=== PATIENT | female | born 1935 | race Caucasian/White ===

== ENCOUNTER 2017-10-30 05:57 | Inpatient (IN) ==
--- NOTE | 2017-10-29 15:54 | Discharge Summary ---
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 - Discharge Medications Home Medications: Aspirin Enteric Coated [Aspirin EC] 325 mg PO DAILY 21 Days #21 tablet. [Rx] OxyCODONE Immed Rel [Roxicodone 5 MG] 5 mg PO Q6HR PRN 7 Days #28 tablet [Rx] HYDROcodone/Acet 5/325 mg [[place] 5-325 mg] 1 tab PO TID PRN 10/30/17 [History] Losartan/Hydrochlorothiazide [Hyzaar 100-12.5 Tablet] 1 tab PO QAM 10/30/17 [ History] Fine-3S/Dha/Epa/Fish Oil [Fish Oil 1,200 mg Softgel] 1 cap PO DAILY 10/30/17 [ History] Allergies/Adverse Reactions: 3 Allergy/AdvReac Type Severity Reaction Status Date / Time ciprofloxacin [From Cipro] Allergy Swelling Verified 10/30/17 11:39 of Lip/Tongue/Throat Penicillins Allergy Rash Verified 10/30/17 11:39 Sulfa (Sulfonamide Allergy Vomiting Verified 10/30/17 11:39 Antibiotics) Primary care physician: Stephon Pena CNP - Patient Status Disposition: Transfer Inpatient Rehab Fac Condition: Good - Discharge Instructions Follow Up With: Stephon Pena CNP [Primary Care Provider] - - Hospital Course Hospital course: Ms. 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 Ward is a 82 year old female Status post left total hip replacement The patient had an uneventful postoperative course. They received antibiotics and physical therapy and were discharged in stable condition. There will follow -up in the office in 2 weeks. - Time Spent with Patient Total time spent providing and/or coordinating discharge services:
--- NOTE | 2017-10-29 16:00 | Physician Discharge Referral ---
ExtendedCare Referral Info Transfer To: [facility] Provider in Charge: Dr. 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 Home Medications: Aspirin Enteric Coated [Aspirin EC] 325 mg PO DAILY 21 Days #21 tablet. [Rx] OxyCODONE Immed Rel [Roxicodone 5 MG] 5 mg PO Q6HR PRN 7 Days #28 tablet [Rx] Allergies/Adverse Reactions: 3 Allergy/AdvReac Type Severity Reaction Status Date / Time ciprofloxacin [From Cipro] Allergy Swelling Unverified 10/18/17 11:59 of Lip/Tongue/Throat Penicillins Allergy Rash Unverified 10/18/17 11:59 Sulfa (Sulfonamide Allergy Vomiting Unverified 10/18/17 11:59 Antibiotics) - Respiratory Orders Smoking Cessation: Smoking cessation has been advised. For more information, call the [place] Tobacco Quit Line at 7-553-MFRX-NOW. - Ancillary Orders May use pressure relief devices daily prn, May go on DALI w/family/respon constitution party w /meds at nurse discretion PRN, May consult with Dentist, Career Orientation Teacher, Central Control Room Operator PRN - Mobility Orders Chair, Ambulate - Rehabiliation Orders Rehab Potential: Good Rehab Orders: Evaluation for Physical Therapy, Evaluation for Occupational Therapy Other: Total Hip replacement Precautions Apply cold therapy 3-6x/day for 20 minutes at a time. Encourage ambulation throughout the day and incentive spirometer 10x/hour. Elevate affected extremity as tolerated. Brace: Wear hip abduction pillow when laying/sleeping - Treatments Skin tear care topically daily PRN per policy List/Other: Opsite placed. Keep dressing intact until first follow up appointment. If > 50% saturated, notify office, remove dressing and place appropriate dressing back in place. Leave Zipline intact. Opsite dressing is water resistant, not water- proof. OK to shower, but do not get dressing wet. - Diet Orders Regular CERTIFICATION: I certify that the transfer of the above named patient to an Extended Care Facility is necessary for the continuing treatment of the diagnosis listed. The above information is true and accurate reflection of patient's current condition. Confidential - Redisclosure prohibited without a patient's written consent.
--- NOTE | 2017-10-29 16:45 | Anesthesia Evaluation PreOp ---
Date of Encounter: 10/30/17 Time of Encounter: 07:01 - Past History Planned Operation: Left Robotic Total Hip Arthroplasty Cardiac History: HTN, Hyperlipidemia Pulmonary History: Denies Any Significant HX SOCIAL WORK LECTURER History: Denies Any Significant HX Other Medical History: Denies Any Significant HX Anesthesia History: No Prior Anesthetic Complications, Past Anesthesia ( hysterectomy) Alcohol Use: occasionally Drug use: none Medications and Allergies Aspirin Enteric Coated [Aspirin EC] 325 mg PO DAILY 21 Days #21 tablet. [Rx] OxyCODONE Immed Rel [Roxicodone 5 MG] 5 mg PO Q6HR PRN 7 Days #28 tablet [Rx] HYDROcodone/Acet 5/325 mg [[place] 5-325 mg] 1 tab PO TID PRN 10/30/17 [History] Losartan/Hydrochlorothiazide [Hyzaar 100-12.5 Tablet] 1 tab PO QAM 10/30/17 [ History] Blair-3S/Dha/Epa/Fish Oil [Fish Oil 1,200 mg Softgel] 1 cap PO DAILY 10/30/17 [ History] 3 Allergy/AdvReac Type Severity Reaction Status Date / Time ciprofloxacin [From Cipro] Allergy Swelling Unverified 10/18/17 11:59 of Lip/Tongue/Throat Penicillins Allergy Rash Unverified 10/18/17 11:59 Sulfa (Sulfonamide Allergy Vomiting Unverified 10/18/17 11:59 Antibiotics) - Meds/Allergy Pre-op Review Medications Reviewed: Yes Allergies Reviewed: Yes Beta Blockers on Current Med List: No Anesthesia Results - Labs Laboratory Tests 10/18/17 10/18/17 10/18/17 12:15 12:15 12:15 WBC 6.8 Hgb 14.3 Hct 43.9 Plt Count 271 PT 11.0 INR 1.0 APTT 35.0 Sodium 142 Potassium 4.2 BUN 16 Creatinine 0.54 L - Imaging EKG: report reviewed (10/18/2017 SINUS RHYTHM POSSIBLE LEFT ATRIAL ENLARGEMENT MODERATE ST DEPRESSION) Anesthesia Exam O2 Sat Height 1.6 m Height 1.6 m Height 1.6 m Weight 60.328 kg Weight 60.328 kg Weight 60.328 kg O2 Sat by Pulse Oximetry 97 Vital Signs Temp Pulse Resp BP Pulse Ox 98.0 F 71 18 155/72 97 10/30/17 06:41 10/30/17 06:41 10/30/17 06:41 10/30/17 06:41 10/30/17 06:41 Height: 5'3'' Weight: 133 lbs NPO (# of Hours): 8 Pain Scale: 3 (left hip) Pain Scale Used: Numeric (1 - 10) - HEENT Pupil (Motor): EOMI Mallampati: III Teeth: Normal Denture Type: Upper: Partial Oral Opening: Greater than 3 - SOCIAL WORK LECTURER LOC: Oriented SOCIAL WORK LECTURER Motor: Normal RUE, Normal LUE, Normal RLE, Normal LLE, Normal Face SOCIAL WORK LECTURER Sensory: Normal: RUE, LUE, RLE, LLE, Face - Cardiac Rhythm: Regular Murmur: None - Pulmonary Breath Sounds: bilateral Clear Respiratory Effort: Symmetrical Anesthesia Assess/Plan ASA Score: 2 Modified Madyson Scale for Level of Consciousness: Cooperative, oriented, and tranquil Anesthetic Plan: General Monitoring Plan: Standard Monitors Recovery Plan: PACU
[2017-10-30] MEDS ORDERED: Clindamycin 900 MG/50 ML 900 MG/50 ML IV.SOLN IVPB ONE (06:36)
[2017-10-30] MEDS ORDERED: Plasma-Lyte A (PH 7.4) 1,000 ML IVC SCH ×2 (06:45→08:15)
--- NOTE | 2017-10-30 06:56 | History & Physical Report ---
Date of Encounter: 10/30/17 Time of Encounter: 06:56 24 Hour HP Update - Instructions Instructions: If the History and Physical is less than 30 days old and was completed prior to A.M. admission and or procedure and has NOT been updated on calendar day of procedure please complete this update prior to performing procedure. - Update Patient reports changes in Medical Condition: No Changes in examination, assessment, or condition: No Changes in Medication: No Preop tests/diagnostics Reviewed: Yes Surgery Remains Indicated: Yes Consent for Planned Operative Procedure(s) Verified: Yes - Pre-Operative Checklist Preoperative Checklist Indicated: No Prophylactic Antibiotic Ordered: Yes Is VTE Prophylaxis Indicated?: Yes
[2017-10-30] MEDS ORDERED: *HR* Propofol 200 MG/20 ML VIAL IVP ONE (07:08)
[2017-10-30] MEDS ORDERED: *HR* FentaNYL (PF) 100 MCG/2 ML VIAL ONE ×2 (07:08→09:35)
[2017-10-30] MEDS ORDERED: *HR* Phenylephrine 10 MG/ML VIAL ONE (07:09)
[2017-10-30] MEDS ORDERED: *HR* Succinylcholine 200 MG/10 ML VIAL IVP ONE (07:09)
[2017-10-30] MEDS ORDERED: Ondansetron 4 MG/2 ML VIAL ONE (07:09)
[2017-10-30] MEDS ORDERED: Lidocaine -MPF 4% 5 ML AMPUL ONE (07:09)
[2017-10-30] MEDS ORDERED: *HR* Rocuronium Bromide 50 MG/5 ML VIAL ONE (07:09)
[2017-10-30] MEDS ORDERED: Dexamethasone 4 MG/ML VIAL ONE (07:09)
[2017-10-30] MEDS ORDERED: Lidocaine -MPF 2% 2 ML VIAL ONE (07:09)
[2017-10-30] MEDS ORDERED: Acetaminophen IV 1,000 MG/100 ML INFUS..BTL ONE (07:29)
[2017-10-30] MEDS ORDERED: ROPIVACAINE HCL/PF 0.5% 30 ML VIAL ONE (07:29)
[2017-10-30] MEDS ORDERED: Ethanol\\Acetic Acid\\Na Ace\\Ben 1,000 ML IRRIG.SOLN IR ONE (07:30)
--- NOTE | 2017-10-30 07:45 | Anesthesia Procedures ---
Date of Encounter: 10/30/17 Time of Encounter: 07:40 Procedures: Anesthesia - Nerve Block Procedure Date: 10/30/17 Time: 07:40 Allergies/Adv Reactions: cipro, pcn, sulfa Pre-op Diagnosis: left hip OA Surgical Procedure: left ARIELLE Checklist: Correct Patient Identifier, Correct procedure, History checked Correct side: Left Blood Thinner: No Monitor Applied: EKG, BP, Pulse Oximetry Supplemental Oxygen via Nasal Cannula (L/min): 2 Sedation: Fentanyl (mcg): 100 Indication: Post Op Analgesia Pre-op Neuro Deficits: No Block Type: Other (fascia iliaca) Catheter placed: No Sterile Technique: Yes Ultrasound used: Yes Anatomy identified: Yes Visual spread of Local: Yes Neuro Stimulation: No Blood on Needle Aspiration: No Smooth Injection of Local: Yes Pain with Injection of Local: No Prep: Chlorhexadine Needle: 22 x 50 mm Stimuplex Local: Ropivacaine (0.25%) Volume (cc): 60 Number of Attempts: 1 Complications: None/effective block Vitals: Vital Signs/O2 Sat/Glucose, Most Recent Temp Pulse Resp BP Pulse Ox 98.0 F 80 18 157/82 98 10/30/17 06:41 10/30/17 07:40 10/30/17 06:41 10/30/17 07:40 10/30/17 07:40
[2017-10-30] MEDS ORDERED: Albuterol 2.5 MG/3 ML NEBULIZER IH ONE (08:05)
[2017-10-30] MEDS ORDERED: Naloxone 0.4 MG/ML INJ IVP PRN ×2 (08:05→10:35)
[2017-10-30] MEDS ORDERED: Ondansetron 4 MG/2 ML VIAL IVP ONE (08:05)
[2017-10-30] MEDS ORDERED: *HR* Labetalol 20 MG/4 ML SYRINGE IVP PRN (08:05)
[2017-10-30] MEDS ORDERED: EPHEDrine 50 MG/ML VIAL ONE (08:06)
[2017-10-30] MEDS ORDERED: Vancomycin (wt based) 1,000 MG VIAL IVPB ONE (08:14)
[2017-10-30] MEDS ORDERED: Vancomycin 1,000 MG in D5% in Water 250 ML IVPB ONE (08:17)
[2017-10-30] MEDS ORDERED: Vancomycin 1,000 MG VIAL ONE (08:39)
--- NOTE | 2017-10-30 09:03 | Orthopedic Operative Note ---
Date of procedure: 10/30/17 Pre-op diagnosis: Left hip arthritis left femoral malunion history of osteomyelitis left femu Post-op diagnosis: same Procedure: Procedure: Left Total Hip Replacment robotic-assisted Estimated blood loss: 300 cc Hardware: Metal and polyethylene replacement. [place] DM Cup: 52 cup Femoral size stem 5 Head: 12head with Carolyn Procedural Notes: Grade 4 arthritic changes femoral head acetabular socket, procedure performed with robotic assistance. Operative procedure: The patient was brought to the operating room and placed on the operating room table. After general anesthesia was administered the patient was placed in the lateral decubitus position with the operative leg up. All pressure points were padded appropriately and the head was stabilized in the neutral position. The operative extremity was prepped and draped in the sterile surgical fashion patient received IV antibiotic prior to skin incision. 3 Steinmann pins were placed in the iliac crest 3 cm proximal to the anterior superior iliac spine this was for the robotic-assisted sensor. This was done through a small 2 cm incision. A standard posterior approach is made to the operative hip, the incision was made through the skin and subcutaneous tissue hemostasis was obtained with Bovie cautery. Using careful sharp dissection the fascia was identified and incised exposing the external rotators. The femoral checkpoint was placed leg length was measured at this time utilizing robotic assistance. Leg length discrepancy left shorter than right 2.5 cm. The external rotators were released off the greater trochanter and tagged with #2 FiberWire suture. The capsule was T'd open and the hip was brought into internal rotation. Patient noted to have grade 4 arthritic changes femoral head. The femoral neck cut was made at the appropriate level roughly 10 mm proximal to the lesser trochanter aced on preoperative templating. An anterior capsulotomy was performed for the anterior retractor. Soft tissues removed from the acetabulum. Patient noted to have grade 4 arthritic changes acetabulum. The acetabulum checkpoint was placed confirmed. The acetabulum was then mapped with robotic assistance. Based on the preoperative plan the acetabulum was reamed in one step with a 51 reamer. The 52 acetabulum was impacted with robotic assistance and 41 degrees of abduction and 20 degrees of anteversion. The hip was brought back in to internal rotation and prepared with the box blank machine operator followed by the canal finder followed by the reaming process to a size 5 broaching process in 20 degrees anteversion. It was broached up to the appropriate size 5. Trial reduction revealed leg lengths close to normal. The femoral implant was impacted in place in 20 degrees of anteversion. Trial reduction found the hip to be stable with 12 head and Carolyn. The trials were removed and the real implants were impacted in place. The hip was reduced, patient had robotic confirmed leg length of 1.5 cm shorter than the contralateral side. The hip had excellent stability with forward flexion to 90 degrees adduction of 30 degrees and internal rotation of 60 degrees. The hip had no shuck. The hips after 2 minutes with a Betadine saline solution. It was irrigated out with 2 L of pulse irrigation. The checkpoints were removed, Steinmann pins were removed. The pain incision and the hip were closed by the PA. The deep tissue was irrigated and closed deep with #1 PDS suture superficially with 0 PDS suture and skin was closed with Dermabond and zip tie. The patient was placed in a sterile dressing and abduction pillow. The patient was extubated and transferred to the recovery room in stable condition. Anesthesia: ELYSSA Surgeon: Rito Diane Logging Crew Foreman: Estefany Lovelace Condition: stable Disposition: PACU
[2017-10-30] MEDS: *HR* HYDROmorphone (PF) 1 MG/ML SYRINGE IVP PRN ×4 (09:45→10:11)
--- NOTE | 2017-10-30 10:20 | Anesthesia Evaluation Post Op ---
Date of Encounter: 10/30/17 Time of Encounter: 10:19 - Vital Signs Vital Signs: Vital Signs/O2 Sat, Most Current Temp Pulse Resp BP Pulse Ox 97.8 F 92 14 127/64 98 10/30/17 10:18 10/30/17 10:18 10/30/17 10:18 10/30/17 10:18 10/30/17 10:18 - Lungs Lungs: Clear Ascult./Percussion - Airway Airway: Non-obstructed - Cardiovascular Regular Rate - Mental Status Mental Status: Alert & Oriented, Answers Appropriately - Pain Pain Scale: 6 Pain Scale used: Numeric (1 - 10) - Nausea Vomiting Nausea Vomiting: Not Present - Hydration Hydration: Ice chips, Has not voided - Discharge PostOp Status: Transfer Patient to floor
[2017-10-30 10:26] LABS: Hematocrit 39.6 % (35.3-44.9); Hemoglobin 12.8 g/dL (11.5-15.4)
[2017-10-30] MEDS ORDERED: Temazepam 15 MG CAPSULE PO PRN (10:35)
[2017-10-30] MEDS ORDERED: Ondansetron 4 MG/2 ML VIAL IVP PRN (10:35)
[2017-10-30] MEDS ORDERED: MOM Conc 10 ML UD.LIQ PO PRN (10:35)
[2017-10-30] MEDS ORDERED: Sennosides 8.6 MG TABLET PO PRN (10:35)
[2017-10-30] MEDS: Ringers Solution, Lactated 1,000 ML IVC SCH (11:53)
[2017-10-30] MEDS: hydroCHLOROthiazide 25 MG TABLET PO SCH (11:53)
[2017-10-30] MEDS: Ascorbic Acid 500 MG TABLET PO SCH ×2 (11:54→17:20)
[2017-10-30] MEDS: Multivit/Ca/Min/Fe/FA 1 TAB TABLET PO SCH (11:54)
[2017-10-30] MEDS: Clindamycin 900 MG/50 ML 900 MG/50 ML IV.SOLN IVPB SCH ×2 (11:55→17:19)
[2017-10-30] MEDS: *HR* OxyCODONE Immed Rel 5 MG TABLET PO PRN ×4 (11:55→23:55)
[2017-10-30] MEDS: *HR* Enoxaparin 30 MG/0.3 ML SYRINGE SQ SCH (17:21)
[2017-10-30] MEDS ORDERED: *HR* Enoxaparin 30 MG/0.3 ML SYRINGE SQ SCH (18:00)
[2017-10-31] MEDS: *HR* HYDROmorphone (PF) 1 MG/ML SYRINGE IVP PRN ×2 (03:13→21:04)
[2017-10-31] MEDS: Ringers Solution, Lactated 1,000 ML IVC SCH ×2 (05:40→16:11)
[2017-10-31] MEDS: *HR* Enoxaparin 30 MG/0.3 ML SYRINGE SQ SCH ×2 (05:41→17:17)
[2017-10-31 06:03] LABS: Hematocrit 30.9 % (35.3-44.9)
[2017-10-31 06:04] LABS: Hemoglobin 10.3 g/dL (11.5-15.4)
[2017-10-31 06:13] LABS: BUN/Creatinine Ratio 28 (6-26); Blood Urea Nitrogen 15 mg/dL (7-20); Calcium 8.4 mg/dL (8.6-10.8); Carbon Dioxide 24 mEq/L (19-29); Chloride 104 mEq/L (98-109); Glucose 128 mg/dL (70-99); Osmolality,Calculated 288 (280-300); Potassium 3.8 mEq/L (3.5-4.5); eGFR For African Americans > 60 (> 60); eGFR For Non-African Americans > 60 (> 60)
[2017-10-31 06:15] LABS: Sodium 138 mEq/L (136-145)
--- NOTE | 2017-10-31 06:43 | Orthopedics Progress Note ---
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 Afebrile vital signs stable. Operative extremity: Neurovascularly intact Dressing clean dry and intact Calves nontender Assessment and plan: Continue with postoperative care Hematocrit 30 Objective Vital signs: Vital Signs Temp Pulse Resp BP Pulse Ox 10/31/17 04:29 97.6 F 99 17 89/55 94 10/30/17 15:17 97.8 F 101 16 104/67 96 10/30/17 13:35 96.6 F L 110 18 118/66 96 10/30/17 12:35 96.5 F L 100 16 103/65 95 10/30/17 11:35 96.3 F L 97 16 102/61 95 10/30/17 11:04 96.0 F L 90 14 135/80 100 10/30/17 10:35 95.7 F L 95 14 143/79 99 10/30/17 10:18 97.8 F 92 14 127/64 98 10/30/17 10:08 97.8 F 96 14 122/65 96 10/30/17 09:58 93 14 129/65 93 10/30/17 09:48 94 14 128/69 97 10/30/17 09:38 97.8 F 96 16 137/75 95 10/30/17 07:45 81 156/94 98 10/30/17 07:40 80 157/82 98 Intake and Output 10/30/17 10/30/17 10/31/17 15:59 23:59 07:59 Intake Total 100 / 100 1000 / 1000 Output Total 300 / 300 500 / 500 300 / 300 Balance -200 / -200 -500 / -500 700 / 700 Intake: IV Fluids 100 / 100 1000 / 1000 Lactated Ringers 1,000 ML @ 75 1000 / 1000 mls/hr IVC .[id number] RICH Rx#: [id number] Cleocin Premix 900 MG/50 ML 900 100 / 100 mg In 50 ml @ 50 mls/hr IVPB Q8HR RICH Rx#:[id number] Oral 0 / 0 Output: Urine 500 / 500 300 / 300 Estimated Blood Loss 300 / 300 - Labs CBC & BMP: 10/31/17 05:51 10/31/17 05:51 Labs: Abnormal lab results Hgb 10.3 g/dL (11.5-15.4) L D 10/31/17 05:51 Hct 30.9 % (35.3-44.9) L 10/31/17 05:51 Creatinine 0.53 mg/dL (0.57-1.11) L 10/31/17 05:51 BUN/Creatinine Ratio 28 (6-26) H 10/31/17 05:51 Glucose 128 mg/dL (70-99) H 10/31/17 05:51 Calcium 8.4 mg/dL (8.6-10.8) L 10/31/17 05:51 - VTE Documentation of Mechanical Device: Venous foot pump, device Consult Discharge Plan - Plan Referrals: Stephon Pena, [employer] MANAGER [Primary Care Provider] -
[2017-10-31] MEDS: Ascorbic Acid 500 MG TABLET PO SCH ×2 (09:45→16:12)
[2017-10-31] MEDS: hydroCHLOROthiazide 25 MG TABLET PO SCH (09:45)
[2017-10-31] MEDS: Multivit/Ca/Min/Fe/FA 1 TAB TABLET PO SCH (09:45)
[2017-10-31] MEDS: *HR* OxyCODONE Immed Rel 5 MG TABLET PO PRN ×2 (11:00→15:26)
--- NOTE | 2017-10-31 12:06 | Event Note ---
Date of Encounter: 10/31/17 Time of Encounter: 12:30 PCR- POD#1 - L THR robotic Benedicto PCR - Patient seen at bedside. Patient's daughter at bedside. 10/31 - H/H 10.3.9 Pain control: Adequate. Adding Lidocaine patch and Tizanidine given patient's description of muscle spasm to proximal thigh region. Participating in PT. All questions and concerns addressed. Educated on use of incentive spirometer, ambulation, and hydration. Patient educated on post-operative restrictions and care. Addressed: see above. D/C plan: Kathy
[2017-10-31] MEDS ORDERED: tiZANidine 4 MG TABLET PO PRN (16:21)
[2017-11-01] MEDS: *HR* Enoxaparin 30 MG/0.3 ML SYRINGE SQ SCH ×2 (05:58→18:21)
[2017-11-01 06:20] LABS: Hematocrit 30.8 % (35.3-44.9); Hemoglobin 10.1 g/dL (11.5-15.4)
[2017-11-01 06:31] LABS: BUN/Creatinine Ratio 27 (6-26); Blood Urea Nitrogen 10 mg/dL (8-23); Calcium 8.8 mg/dL (8.6-10.3); Carbon Dioxide 32 mEq/L (23-29); Chloride 102 mEq/L (98-107); Glucose 143 mg/dL (70-105); Osmolality,Calculated 290 (280-300); Potassium 3.6 mEq/L (3.5-5.1); Sodium 139 mEq/L (136-145); eGFR For African Americans > 60 (> 60); eGFR For Non-African Americans > 60 (> 60)
--- NOTE | 2017-11-01 08:05 | Orthopedics Progress Note ---
Date of Encounter: 11/01/17 Time of Encounter: 08:05 - Assessment and Plan (1) Arthritis of left hip Current Visit: No Status: Chronic (2) HTN (hypertension) Current Visit: No Status: Chronic Qualifiers: Hypertension type: unspecified Qualified Code(s): I10 - Essential (primary ) hypertension (3) Closed fracture of left hip with malunion Current Visit: No Status: Chronic (4) History of infection Current Visit: No Status: Chronic (5) Status post total hip replacement, left Current Visit: No Status: Acute (6) Acute blood loss anemia Current Visit: Yes Status: Acute Subjective Interval history: Patient was seen this morning doing well without complaints. Afebrile vital signs stable. Operative extremity: Neurovascularly intact Dressing clean dry and intact Calves nontender Assessment and plan: Continue with postoperative care Hematocrit 30 Objective Vital signs: Vital Signs Temp Pulse Resp BP Pulse Ox 11/01/17 06:46 98.4 F 79 18 99/61 97 11/01/17 05:04 98.3 F 86 14 130/80 95 11/01/17 01:03 98.3 F 111 15 129/76 96 10/31/17 19:13 98.3 F 111 16 135/72 96 10/31/17 15:27 97.5 F L 93 18 107/69 94 10/31/17 11:05 97.9 F 81 16 88/50 98 Intake and Output 10/31/17 11/01/17 11/01/17 23:59 07:59 15:59 Intake Total 240 / 240 Output Total 300 / 300 300 / 300 Balance -60 / -60 -300 / -300 Intake: Oral 240 / 240 Output: Urine 300 / 300 300 / 300 Other: Meal Dinner Percent of Meal Consumed 70% - Labs CBC & BMP: 11/01/17 05:57 11/01/17 05:57 Labs: Abnormal lab results Hgb 10.1 g/dL (11.5-15.4) L 11/01/17 05:57 Hct 30.8 % (35.3-44.9) L 11/01/17 05:57 Carbon Dioxide 32 mEq/L (23-29) H 11/01/17 05:57 Creatinine 0.37 mg/dL (0.60-1.20) L 11/01/17 05:57 BUN/Creatinine Ratio 27 (6-26) H 11/01/17 05:57 Glucose 143 mg/dL (70-105) H 11/01/17 05:57 - VTE Documentation of Mechanical Device: Venous foot pump, device Consult Discharge Plan - Plan Referrals: Stephon Pena, [employer]ARD [Primary Care Provider] -
[2017-11-01] MEDS: *HR* OxyCODONE Immed Rel 5 MG TABLET PO PRN ×4 (08:22→20:28)
[2017-11-01] MEDS: Multivit/Ca/Min/Fe/FA 1 TAB TABLET PO SCH (08:23)
[2017-11-01] MEDS: Ascorbic Acid 500 MG TABLET PO SCH ×2 (08:23→18:20)
[2017-11-01] MEDS: hydroCHLOROthiazide 25 MG TABLET PO SCH (08:24)
--- NOTE | 2017-11-01 12:31 | Event Note ---
Date of Encounter: 11/01/17 Time of Encounter: 11:15 PCR- POD#2 - L THR robotic Benedicto PCR - Patient seen at bedside. 10/31 - H/H 10.3/30.9 11/01 - H/H 10.1/30.8 Pain control: Adequate. lidocaine patch has helped pain Continue in left knee immobilizer Participating in PT. All questions and concerns addressed. Educated on use of incentive spirometer, ambulation, and hydration. Patient educated on post-operative restrictions and care. Addressed: see above. D/C plan: Kathy tomorrow
[2017-11-02] MEDS: *HR* OxyCODONE Immed Rel 5 MG TABLET PO PRN ×2 (04:48→10:38)
[2017-11-02] MEDS: *HR* Enoxaparin 30 MG/0.3 ML SYRINGE SQ SCH (04:48)
[2017-11-02 06:58] VITALS: BP 131/70
[2017-11-02] MEDS: Ascorbic Acid 500 MG TABLET PO SCH (07:38)
[2017-11-02] MEDS: hydroCHLOROthiazide 25 MG TABLET PO SCH (07:38)
[2017-11-02] MEDS: Multivit/Ca/Min/Fe/FA 1 TAB TABLET PO SCH (07:38)
== END 2017-11-02 12:26 | DRG 470 ==
LOC: SAMDAY 05:57 → 3NENU 10:35
PROVIDERS: ADMIT Orthopaedic Surgery; ATTEND Orthopaedic Surgery